=== PATIENT | female | born 1965 | race Caucasian/White ===

== ENCOUNTER 2019-06-24 05:28 | Emergency (ER) | payer OTHER ==
[~2019-06-24] VITALS: Ht 165.1 cm; Wt 55.3 kg
--- NOTE | 2019-06-24 05:46 | NUR ---
Dr. Jason at bedside for MSE.
[2019-06-24] MEDS ORDERED: predniSONE 20 MG TABLET ONE (05:57)
[2019-06-24] MEDS ORDERED: predniSONE 20 MG TABLET PO ONE (06:00)
--- NOTE | 2019-06-24 06:02 | NUR ---
Patient discharged to home in stable conditon. Written and verbal after care instructions given. Patient verbalizes understanding of instructions. Pt ambulated out of ER with steady gait, no acute signs of distress, VSS, all belongings taken.
[2019-06-24 06:03] VITALS: BP 119/80
== END 2019-06-24 06:04 | disposition home or self-care (01) ==
LOC: ER 05:35
DX: T78.3XXA Angioneurotic edema, initial encounter (principal); Z88.0 Allergy status to penicillin
CPT/HCPCS: 99282; J7512; A4663